=== PATIENT | female | born 1985 | race Hispanic/Latino ===

== ENCOUNTER 2022-07-16 07:34 | Outpatient (CLI) | payer OTHER | END 2022-07-16 07:35 | disposition home or self-care (01) | LOC: CSHULT 07:34 | PROVIDERS: ATTEND Physician Assistant | DX: R10.11 Right upper quadrant pain (principal); R10.2 Pelvic and perineal pain; N85.2 Hypertrophy of uterus; N85.00 Endometrial hyperplasia, unspecified | CPT/HCPCS: 76705; 76856; 93976 ==

== ENCOUNTER 2023-09-16 15:08 | Outpatient (CLI) | payer OTHER | END 2023-09-16 15:09 | disposition home or self-care (01) | LOC: CSHLAB 15:08 | PROVIDERS: ATTEND Student in an Organized Health Care Education/Training Program | DX: Z01.812 Encounter for preprocedural laboratory examination (principal); N93.9 Abnormal uterine and vaginal bleeding, unspecified | CPT/HCPCS: 84703; 85027; 86850; 86900; 86901 ==